=== PATIENT | female | born 1980 | race Caucasian/White ===

== ENCOUNTER 2019-08-08 14:31 | Outpatient (CLI) | payer BC, SELFPAY ==
--- NOTE | ~2019-08-08 | XR_ITS ---
EXAMINATION: XR scanogram DATE: 08/08/2019 15:12 INDICATION: Limb length discrepancy at the bilateral lower extremities TECHNIQUE: Standing AP view of the bilateral lower limbs were obtained on overlapping images with a bebeto mccormick. COMPARISON: None. FINDINGS: Leg length discrepancy with the apex of the right femoral head lying 11 mm cephalad to the apex of th e left femoral head. This is due primarily to a discrepancy in length of the bilateral tibiae with th e epicenter of the medial compartment of the right knee lying located 9 mm cephalad to the epicenter of the medial compartment of the left knee no fracture or suspicious lytic or blastic bone lesions. J oint spaces are normal. IMPRESSION: 1. 11 mm leg length discrepancy which appears to primarily to 9 mm increased length of the right tibi a relative to the left. Reviewed, dictated and finalized at location A. IMPRESSION: 1. 11 mm leg length discrepancy which appears to primarily to 9 mm increased le ngth of the right tibia relative to the left.
== END 2019-08-08 14:32 | disposition home or self-care (01) ==
LOC: ANHIMG 14:43
PROVIDERS: PCP Family Medicine; Visit Provider Podiatrist Foot & Ankle Surgery
DX: M21.762 Unequal limb length (acquired), left tibia (principal)
CPT/HCPCS: 77073

== ENCOUNTER 2019-08-18 22:44 | Emergency (ER) | payer BC, SELFPAY ==
--- NOTE | ~2019-08-18 | CT_ITS ---
EXAMINATION: CT abdomen pelvis w con DATE: 08/19/2019 01:01 INDICATION: Nausea and right lower quadrant tenderness. TECHNIQUE: Computed tomography (CT) of the abdomen and pelvis was performed with 100 mL Omnipaque-350 intravenous contrast. Automated exposure control and iterative reconstruction technique were employe d. The dose-length product was 613.37 mGy-cm. COMPARISON: 07/04/2018 FINDINGS: Lung bases are clear. Heart size is normal. No pericardial or pleural effusion. Focal hepatic steatos is at the ligamentum teres. Gallbladder, spleen, pancreas, bilateral adrenal glands and kidneys are n ormal. There is wall thickening of a few loops of small bowel in the central abdomen consistent with enteritis. The colon and appendix are normal. Bladder, anteverted uterus and right adnexa are normal. 2.2 cm peripherally enhancing likely corpus luteum cyst at the left ovary. Small amount of ascites i n the deep pelvis. No abscess or free intraperineal gas. Small fat-containing umbilical hernia. Schmo rl's node along the superior endplate of L2. IMPRESSION: 1. Wall thickening of a few loops of small bowel consistent with enteritis which could be either infe ctious or inflammatory in etiology. Dr. Oviedo discussed these findings with Dr. Wick at 10:35 AM. 2. 2.2 cm left ovarian corpus luteum cyst. 3. Small amount of free fluid in the pelvis which could be physiologic, reactive or related to ovaria n cyst rupture. Reviewed, dictated and finalized at location A. IMPRESSION: 1. Wall thickening of a few loops of small bowel consistent with enteritis whic h could be either infectious or inflammatory in etiology. Dr. Oviedo discusse d these findings with Dr. Wick at 10:35 AM. 2. 2.2 cm left ovarian corpus luteum cyst. 3. Small amount of free fluid in the pelvis which could be physiologic, reactiv e or related to ovarian cyst rupture.
[2019-08-18 22:46] VITALS: BP 131/92; PULSE 115; RESP 22; TEMP 37.3; O2SAT 100
[2019-08-18 23:15] LABS: Basophils Percent Auto 0.2 % (0.2-1.2); Eosinophils Percent Auto 0.2 % (0-4.4); Hematocrit 41.1 % (37.0-47.0); Hemoglobin 14.5 g/dL (12.0-15.0); Immature Granulocyte Absolute 0.04 K/mm3 (0.00-0.031); Immature Granulocyte Percent A 0.4 % (0-0.5); Lymphocytes Absolute Auto 1.18 K/mm3 (0.9-3.2); Lymphocytes Percent Auto 11.6 % (18.3-44.2); Mean Corpuscular HGB Conc 35.3 g/dl (32-36); Mean Corpuscular Hemoglobin 31.5 pg (26-34); Mean Corpuscular Volume 89.3 fl (80-100); Mean Platelet Volume 10.3 fl (7.4-10.4); Monocytes Absolute Auto 0.9 K/mm3 (0.1-0.6); Neutrophils Percent Auto 78.6 % (45.5-73.1); Platelet Count Result 309 k/mm3 (150-375); Red Cell Distribution Width 12.1 % (11.5-14.5); White Blood Count 10.2 K/mm3 (4.5-10.0)
[2019-08-18 23:30] LABS: Lactic Acid Reflex 0.7 mmol/L (0.7-2.1)
[2019-08-18 23:31] LABS: Alanine Aminotransferase 18 U/L (4-35); Albumin Level 4.7 g/dL (3.5-5.1); Alkaline Phosphatase 89 U/L (38-126); Aspartate Amino Transferase 31 U/L (14-36); Bilirubin,Total 0.9 mg/dL (0.2-1.3); Blood Urea Nitrogen 11 mg/dL (7-17); Carbon Dioxide 21 mmol/L (22-30); Chloride 101 mmol/L (98-107); Estimated CRCL calculation 112 ml/min; Estimated Glomerular Filt Rate > 60; Glucose 122 mg/dL (65-105); Lipase 90 U/L (23-300); Potassium 3.7 mmol/L (3.4-5.0); Sodium 131 mmol/L (137-145)
--- NOTE | 2019-08-18 23:49 | ED.ABDPAIN ---
HPI - Abdominal Pain General Chief Complaint: Abdominal Pain Stated Complaint: abd pain, possible uti, Time Seen by Provider: 08/18/19 23:24 Source: patient Mode of arrival: ambulatory Limitations: no limitations History of Present Illness HPI narrative: This patient is a 39 year old female who presents for evaluation of nausea and diarrhea. She states all day she has had multiple episodes of diarrhea and nausea. She took an old prescribed zofran today but she states she still feels like ball of nausea in epigastric. She has chills but no fever or cough. She spoke with MD on teleconference and she was referred to ER for possible gallbladder issue. She also thinks she has UTI due to increased urinary frequency for 2 days. Onset (ago): day(s) Pain Consistency: constant Location: epigastric Exacerbating factors: eating Related Data Home Medications Medication Instructions Recorded Confirmed thyroid (pork) 120 mg tablet 120 mg PO DAILY 12/16/18 12/16/18 Allergies Allergy/AdvReac Type Severity Reaction Status Date / Time No Known Allergies Allergy Unverified 05/30/13 16:12 Review of Systems Review of Systems: All systems reviewed & are unremarkable except as noted in HPI and below Constitutional: Constitutional: Reports chills and Denies fever(s) Respiratory: Respiratory: Denies cough, Denies dyspnea and Denies wheezing Gastrointestinal: Gastrointestinal: Reports abdominal pain, Reports diarrhea, Reports nausea and Denies vomiting Genitourinary: Genitourinary: Reports nocturia [facility] Past Medical History Medical History (Updated 08/19/19 @ 02:35 by Randa Nunez MD) Hypothyroid Nasal septum perforation Surgical History Surgical History (Updated 08/18/19 @ 23:50 by Randa Nunez MD) H/O section H/O nasal septoplasty History of mandibular surgery Family History Family History (Updated 09/13/15 @ 23:21 by DOCTOR UNKNOWN) Mother Patient's mother is in good health Father Patient's father is in good health Family history of diabetes mellitus in first degree relative Sibling Patient's brother is in good health Social History Social History (Updated 03/17/19 @ 11:10 by Harper Ramesh) Social History: Smoking status: Never smoker Second hand tobacco smoke exposure: No Alcohol intake: current Substance use: never Substance use type: does not use Additional occupation/education comments: homemaker Gender identity (if verbalized by the patient): Female Exam Narrative: Exam Narrative: GENERAL: Well-appearing, well-nourished, and in no acute distress. HEAD: Normocephalic, atraumatic EYES: PERRLA and EOMI, conjunctiva clear without discharge THROAT:Mucous membranes moist, Oropharynx normal without erythema, exudate, peritonsillar swelling or fluctuance NECK: Supple, without lymphadenopathy or mass RESPIRATORY: No respiratory distress, Airway patent, Respirations non-labored, Clear to auscultation without rales, rhonchi or wheeze HEART: Regular rate and rhythm. No murmur heard. Normal peripheral pulses. ABDOMEN: Soft, LLQ , epigastric, nondistended, normal active bowel sounds. No masses. No rebound or guarding, No organomegaly. EXTREMITIES: No edema, normal strength with full range of motion. SKIN: Warm, dry, normal color without rash NEURO: Alert and oriented x3. CN 2-12 grossly intact. No focal deficits. PSYCH: Normal mood and affect. Course Reevaluation(s) Reevaluation #1: PAtient states she feels better. I discussed CT with left ovarian cyst and she has UTI. She will be given antibiotics in ER and she will be discharged to follow up with washer blanket Date: 08/19/19 Time: 02:31 Vital Signs Vital signs: Vital Signs Temperature 99.1 F 08/18/19 22:46 Pulse Rate 115 H 08/18/19 22:46 Respiratory Rate 22 H 08/18/19 22:46 Blood Pressure 131/92 H 08/18/19 22:46 Pulse Oximetry 100 08/18/19 22:46 Temperatur
[2019-08-19 00:04] LABS: Add Urine Microscopic? YES; Appearance Urine Clear (Clear); Bacteria Urine Trace /hpf; Bilirubin Urine Negative (Negative); Blood Urine 1+ (Negative); Color Urine Amber (Yellow); Glucose Urine UA Negative (Negative); Ketones Urine Negative (Negative); Leukocyte Esterase Ur 1+ LEU/UL (Negative); Nitrate Urine Positive (Negative); Protein Urine Negative (Negative); Specific Grav Ur 1.012 (1.001-1.035); Squamous Epithelial Cell Urine Many /hpf (Few); WBC Urine 31-50 /hpf
[2019-08-19] MEDS: PANTOPRAZOLE SODIUM IV 40 MG VIAL IV PUSH (00:19)
[2019-08-19] MEDS: ONDANSETRON INJ 4 MG/2 ML VIAL IV PUSH (00:19)
[2019-08-19] MEDS: LACTATED RINGERS 1,000 ML 999 ML IV CONT (00:23)
[2019-08-19 00:40] VITALS: BP 112/72; PULSE 94; RESP 18; O2SAT 98
--- NOTE | 2019-08-19 00:40 | ECG_ITS ---
Measurements Intervals [place] Rate: 86 P: 44 CA: 124 QRS: 39 QRSD: 84 T: 10 QT: 367 QTc: 440 Interpretive Statements SINUS RHYTHM BORDERLINE ST-T WAVE ABNORMALITY- ANT/INF LEADS BASELINE ARTIFACT- I, II, III, AVR, AVL,A VF BORDERLINE ECG Electronically Signed On 08-19-2019 8:11:04 CDT by Pool Agudelo D.O.
[2019-08-19 01:31] VITALS: BP 109/74; PULSE 91; RESP 18; O2SAT 99
[2019-08-19 03:08] VITALS: BP 128/70; PULSE 70; RESP 18; O2SAT 98
== END 2019-08-19 03:09 | disposition home or self-care (01) ==
PROVIDERS: Emergency Provider General Practice; PCP Family Medicine
DX: N39.0 Urinary tract infection, site not specified (principal); N83.202 Unspecified ovarian cyst, left side; R11.2 Nausea with vomiting, unspecified; E03.9 Hypothyroidism, unspecified; R94.31 Abnormal electrocardiogram [ECG] [EKG]
CPT/HCPCS: 36415; 74177; 80053; 81001; 81025; 83605; 83690; 85025; 87086; 87088; 93005; 96361; 96374; 96375; 99284; C9113; J0696; J2405; J7120; Q9967

== ENCOUNTER 2020-09-27 16:24 | Outpatient (CLI) | payer BC, SELFPAY ==
--- NOTE | ~2020-09-27 | CT_ITS ---
EXAMINATION: CT sinus wo con DATE: 09/27/2020 16:38 INDICATION: Chronic sinusitis, unspecified. TECHNIQUE: Computed tomography (CT) of the paranasal sinuses was performed without intravenous contra st. Iterative reconstruction technique was employed. The dose-length product was 300.40 mGy-cm. COMPARISON: Brain MRI 01/24/2019 FINDINGS: The frontal sinuses are hypoplastic. There is mild mucosal thickening in the frontal recess es. The sphenoid sinuses are clear. There are reconstruction plates with screws at the maxilla and ma xillary sinuses. There is chronic dehiscence of the posterior and inferior olivas of the maxillary sin uses. There is leftward deviation of the nasal septum. There are bilateral Erick cells. The ostiomea yuli units are patent. There is mild mucosal thickening in the right infundibulum at the left hiatus s emilunaris. IMPRESSION: 1. Mild mucosal thickening in the paranasal sinuses. 2. Leftward deviation of the nasal septum. Reviewed, dictated and finalized at location A.
== END 2020-09-27 16:25 | disposition home or self-care (01) ==
PROVIDERS: PCP Family Medicine; Visit Provider Family Medicine
DX: J32.9 Chronic sinusitis, unspecified (principal); J34.89 Other specified disorders of nose and nasal sinuses; J34.2 Deviated nasal septum
CPT/HCPCS: 70486

== ENCOUNTER → 2020-10-17 10:00 | Outpatient (CLI) | payer BC, SELFPAY ==
--- NOTE | ~2020-10-17 | XR_ITS ---
EXAMINATION: XR lumbar spine 2-3V DATE: 10/17/2020 11:16 INDICATION: Low back pain TECHNIQUE: Anteroposterior and lateral views of the lumbar spine, and cone-down lateral view of the l umbosacral junction were obtained. COMPARISON: None. FINDINGS: The vertebral body heights and alignment are normal. There is mild loss of intervertebral d isc space height at L4-5. Small degenerative osteophytes project from the anterior endplates of multi ple vertebral bodies. A moderate volume of colonic stool is present. IMPRESSION: 1. Mild lumbar spondylosis without acute findings. Reviewed, dictated and finalized at location A.
--- NOTE | ~2020-10-17 | MR_ITS ---
EXAMINATION: MR brain/brain stem wo/w con EXAM DATE: 10/17/2020 10:49 INDICATION: Impairment of balance impairment of balance . TECHNIQUE: Magnetic resonance imaging (MRI) of the brain/brain stem obtained without contrast. Sagit yuli T1, axial diffusion, gradient echo (T2*), T1, T2, FLAIR sequences obtained. Patient was then inj ected with 15 cc intravenous Multihance contrast. Axial and coronal postcontrast T1 weighted sequence s obtained. Comparison is made to prior examination from 01/24/2019. FINDINGS: There are no areas of restricted diffusion to suggest acute infarction. There is no acute hemorrhage seen on the T2*, a hemosiderin sensitive sequence. No intraparenchymal brain mass. The ve ntricles are normal in size. There are no extra-axial collections. Flow voids are seen in the cereb ral arteries on the T2-weighted sequences consistent with their expected patency. The orbits are unr emarkable. Soft tissue is unremarkable. There are no areas of abnormal enhancement on the postcont rast images. IMPRESSION: 1. Normal brain MRI examination. Reviewed, dictated and finalized at location B.
[2020-10-17 10:25] LABS: Estimated Glomerular Filt Rate > 60
== END ==
PROVIDERS: PCP Physician Assistant; Visit Provider Physician Assistant
DX: M54.5 Low back pain (principal); R26.89 Other abnormalities of gait and mobility; M47.816 Spondylosis without myelopathy or radiculopathy, lumbar region
CPT/HCPCS: 70553; 72100; A9577

== ENCOUNTER → 2021-03-31 13:53 | Outpatient (CLI) | payer BC, SELFPAY ==
--- NOTE | ~2021-03-31 | US_ITS ---
EXAMINATION: US pelvic complete w TV DATE: 03/31/2021 14:17 INDICATION: Right lower quadrant pain and bloating TECHNIQUE: Multiple transabdominal and endovaginal sonographic images of the pelvis were obtained. COMPARISON: None. FINDINGS: The uterus measures 10.2 x 4 x 5.1 cm. The endometrial complex measures 9 mm. The right ova ry measures 2.2 x 1.9 x 2.2 cm. The left ovary measures 2.7 x 1.9 x 3.5 cm. There is normal vascular flow in the ovaries. There is no free fluid in the pelvis. IMPRESSION: 1. No sonographic correlate for the patient's symptoms. Reviewed, dictated and finalized at location A. TRICAL MAINTENANCE TECHNICIAN
== END ==
PROVIDERS: PCP Physician Assistant; Visit Provider Physician Assistant
DX: R14.0 Abdominal distension (gaseous) (principal)
CPT/HCPCS: 76830; 76856

== ENCOUNTER → 2021-04-08 08:29 | Outpatient (CLI) | payer BC, SELFPAY ==
--- NOTE | ~2021-04-08 | US_ITS ---
US abdomen complete EXAMINATION: US Abdomen Complete INDICATION: Bloating and fullness. Nausea after eating. PROCEDURE: Realtime High Resolution abdomen ultrasound. COMPARISON: No prior studies for comparison FINDINGS: Gallbladder within normal limits. No gallstones, pericholecystic fluid, gallbladder wall t hickening or biliary dilatation. Common bile duct measures 4 mm. Liver echotexture within normal limits without focal mass. Pancreas within normal limits. Pancreati c tail is obscured by bowel gas. Spleen is unremarkeable. Renal echotexture is within normal limits bilaterally without hydronephrosis, contour deforming mass or renal stone. Right kidney measures 10.3 cm. Left kidney measures 10.7 cm. Visualized aspects of the aorta and IVC are within normal limits. Portal vein is patent. No sonograph ic Amador's sign indicated by the technologist. IMPRESSION: 1: Normal abdominal ultrasound. Reviewed, dictated and finalized at location B. VISION PRODUCTION CLERK
== END ==
PROVIDERS: PCP Physician Assistant; Visit Provider Physician Assistant
DX: R14.0 Abdominal distension (gaseous) (principal)
CPT/HCPCS: 76700

== ENCOUNTER → 2021-11-20 10:12 | Outpatient (CLI) | payer BC, SELFPAY ==
--- NOTE | ~2021-11-20 | MM_ITS ---
EXAMINATION: MM screening maryam BI w dilcia HISTORY: Screening mammogram TECHNIQUE: Craniocaudal and mediolateral oblique 3-D tomosynthesis images were obtained and synthetic 2-D images were generated. CAD analysis was submitted and interpreted. COMPARISON: No prior mammogram is available for comparison at this institution. BREAST PARENCHYMAL COMPOSITION: The breasts are heterogeneously dense, which may obscure small masses . FINDINGS: RIGHT BREAST: There are possible masses in the subareolar aspect of the slightly outer breast. There is also an asymmetry in the middle third of the breast in line with the nipple axis on the mediolater al oblique view. LEFT BREAST: No suspicious mass, calcification, or architectural distortion are identified to suggest malignancy. IMPRESSION: 1. Right breast findings as described above which may represent the patient's baseline however no com parison is currently available. 2. Comparison with prior mammograms is necessary. BI-RADS Category 0: Incomplete: Needs comparison with prior mammograms. Reviewed, dictated and finalized at location B. IMPRESSION: 1. Right breast findings as described above which may represent the patient's b aseline however no comparison is currently available. 2. Comparison with prior mammograms is necessary. BI-RADS Category 0: Incomplete: Needs comparison with prior mammograms.
== END ==
PROVIDERS: PCP Physician Assistant
DX: Z12.31 Encounter for screening mammogram for malignant neoplasm of breast (principal); R92.8 Other abnormal and inconclusive findings on diagnostic imaging of breast
CPT/HCPCS: 77063; 77067

== ENCOUNTER → 2021-12-16 13:15 | Outpatient (CLI) | payer BC, SELFPAY ==
--- NOTE | ~2021-12-16 | MR_ITS ---
EXAMINATION: MR brain/brain stem wo/w con DATE: 12/16/2021 14:20 INDICATION: Loss of balance. Other abnormalities of gait and mobility. TECHNIQUE: Magnetic resonance imaging (MRI) of the brain and brainstem was performed without and with 15 mL MultiHance intravenous contrast. COMPARISON: Brain MRI 10/17/2020 FINDINGS: There is no intracranial hemorrhage, acute infarction, or abnormal intracranial mass lesion . The ventricles are normal in size. The paranasal sinuses are clear. The orbits are normal. The mast oid air cells are normal. IMPRESSION: 1. Normal brain. Reviewed, dictated and finalized at location A. IMPRESSION: 1. Normal brain.
== END ==
PROVIDERS: PCP Physician Assistant; Visit Provider Physician Assistant
DX: R26.89 Other abnormalities of gait and mobility (principal)
CPT/HCPCS: 70553; A9577

== ENCOUNTER → 2021-12-19 08:47 | Outpatient (CLI) | payer BC, SELFPAY ==
--- NOTE | ~2021-12-19 | MMUS_ITS ---
EXAMINATION: MM diagnostic maryam RT w dilcia, US breast RT complete HISTORY: Follow-up possible subareolar mass of the right breast TECHNIQUE: Additional 3-D tomosynthesis images of the right breast were performed and synthetic 2-D i mages were generated. CAD analysis was submitted and interpreted. High resolution complete right antwan st ultrasound was performed. COMPARISON: Comparison to multiple prior studies sequentially, with oldest reviewed study dated 03/29. BREAST PARENCHYMAL COMPOSITION: The breasts are heterogeneously dense, which may obscure small masses FINDINGS: MAMMOGRAPHIC FINDINGS: There is a persistent focal asymmetry anteriorly and laterally on the spot CC view near the nipple. N o discrete mass identified. ULTRASOUND: Complete right breast US of all 4 quadrants of the breasts and retroareolar region was reviewed. Ther e are multiple simple cysts of the right breast. At 8:00, 7 cm from the nipple there is an oval hypoe choic mass with parallel orientation, circumscribed margins, no significant posterior features or int ernal vascularity. This mass measures 8 x 7 x 4 mm with heterogeneous internal echotexture. At 11:00, 4 cm from the nipple, there is an oval circumscribed hypoechoic mass with parallel orientation, no s ignificant posterior features measuring 1.1 x 1 x 0.8 cm. There are the areola there is an 8 mm cyst likely corresponding to the mammographic finding. IMPRESSION: 1. Indeterminate masses of the right breast at 8:00, 7 cm from the nipple and 11:00, 4 cm from the ni pple. 2. Ultrasound-guided right breast biopsy recommended. BI-RADS category 4, suspicious findings. Reviewed, dictated and finalized at location A. IMPRESSION: 1. Indeterminate masses of the right breast at 8:00, 7 cm from the nipple and 1 1:00, 4 cm from the nipple. 2. Ultrasound-guided right breast biopsy recommended. BI-RADS category 4, suspicious findings.
== END ==
PROVIDERS: PCP Physician Assistant
DX: R92.8 Other abnormal and inconclusive findings on diagnostic imaging of breast (principal)
CPT/HCPCS: 76641; 77061; 77065; G0279

== ENCOUNTER → 2022-02-24 12:29 | Outpatient (CLI) | payer BC, SELFPAY ==
--- NOTE | ~2022-02-24 | MR_ITS ---
EXAMINATION: MR lumbar spine wo con DATE: 02/24/2022 13:00 INDICATION: Right-sided low back pain. Lumbar radiculopathy. TECHNIQUE: Magnetic resonance imaging (MRI) of the lumbar spine was performed without intravenous con trast. Sequences included sagittal T2-weighted FSE, sagittal T2-weighted FS FSE, sagittal T1-weighted FSE, and axial T2-weighted FSE. COMPARISON: Lumbar spine radiographs 10/17/2020 FINDINGS: There is 5 degrees dextrocurvature of the lumbar spine. There is a Schmorl's node of superi or endplate of L2. There is mildly decreased disc height at L4-L5. The distal spinal cord signal inte nsity is normal. The conus medullaris is at L1. The following disc levels are specifically discussed: L1-L2: There is a left central protrusion. There is mild bilateral facet joint osteoarthritis. There is no neural foraminal stenosis. There is mild central canal stenosis. L2-L3: The disc does not extend beyond the endplate margin. There is mild bilateral facet joint osteo arthritis. There is no neural foraminal stenosis. There is no central canal stenosis. L3-L4: The disc is bulging and has an annular fissure. There is mild bilateral facet joint osteoarthr itis. There is mild bilateral neural foraminal stenosis. There is mild central canal stenosis. L4-L5: The disc is bulging and has an annular fissure. There is severe right and moderate left facet joint osteoarthritis. There is mild bilateral neural foraminal stenosis. There is mild central canal stenosis. L5-S1: The disc is mildly bulging and has an annular fissure. There is moderate bilateral facet joint osteoarthritis. There is mild bilateral neural foraminal stenosis. There is mild central canal steno sis. IMPRESSION: 1. Mild lumbar spondylosis. Reviewed, dictated and finalized at location A. MANAGER IMPRESSION: 1. Mild lumbar spondylosis.
== END ==
PROVIDERS: PCP Physician Assistant; Visit Provider Physician Assistant
DX: M47.26 Other spondylosis with radiculopathy, lumbar region (principal)
CPT/HCPCS: 72148

== ENCOUNTER 2022-10-06 03:29 | Day surgery (SDC) | payer BC, SELFPAY ==
[2022-09-23 12:32] VITALS: BMI 34.6
--- NOTE | 2022-10-05 14:35 | P.PNAN_ITS ---
Anes - Initial Pre Proc Eval Procedure: Operation Date: 10/06/22 10:30 Proposed Procedures p Colonoscopy - Jus Chowdhury MD Date/Time: 10/05/22 14:35 Surgeon: Jus Chowdhury MD Pre Op Diagnosis: other fecal abnormalities, Patient Data Age: 42 Gender: F Height: 1.57 m Weight: 85.9 kg Allergies Allergy/AdvReac Type Severity Reaction Status Date / Time No Known Allergies Allergy Verified 10/06/22 09:19 Home Medications Medication Instructions Recorded Confirmed Type liothyronine 5 mcg tablet (Cytomel) 5 mcg PO DAILY 10/03/20 09/23/22 History bupropion HCl 150 mg 24 hr tablet, 150 mg PO DAILY 09/23/22 09/23/22 History extended release levothyroxine 75 mcg capsule 75 mcg PO DAILY 09/23/22 09/23/22 History (Tirosint) Patient hx anesthesia problems: none Family hx anesthesia problems: none Results Review: All pre-operative results and documents have been reviewed as part of the pre- operative evaluation. [facility] Past Medical History Medical History (Updated 09/17/22 @ 11:55 by JIGNESH Zhu) Anal itching Hypothyroid Nasal septum perforation Rectal bleeding Surgical History Surgical History H/O section H/O nasal septoplasty History of mandibular surgery Family History Family History Mother Patient's mother is in good health Depression Thyroid disorder Father Patient's father is in good health Family history of diabetes mellitus in first degree relative Alcoholism Sibling Patient's brother is in good health Social History Social History Social History: Smoking status: Never smoker Second hand tobacco smoke exposure: No Alcohol intake: current Alcohol use details: occasional use Substance use: never Substance use type: does not use Living arrangements: with family Occupation/Education: unemployed Additional occupation/education comments: homemaker Gender identity (if verbalized by the patient): Female Sexual Orientation (if Verbalized by the Patient): Straight or Heterosexual Spiritual care concerns: No Anes - Eval Final PreProcedure Day of Procedure 10/05/22 14:35 Patient weight: obese Heart: regular rate and rhythm Lungs: clear to auscultation Airway: Mallampati scale class II Neurological: alert and oriented Last oral intake: >/= 8 hours ASA classification: III Emergent: no Anesthetic plan: proceed Anesthesia type and monitoring: general GIVS and standard monitoring Results Review: All pre-operative results and documents have been reviewed as part of the pre- operative evaluation. Informed Consent: The patient's anesthetic plan and its attendant risks and benefits were discussed with the patient/family/POA. Questions were solicited and answers provided to the satisfaction of the patient/family/POA.
[2022-10-06 09:21] VITALS: BP 118/82; PULSE 90; RESP 18; TEMP 36.4; O2SAT 100
[2022-10-06] MEDS: LACTATED RINGERS 1,000 ML 150 ML IV CONT (09:31)
--- NOTE | 2022-10-06 09:34 | SUR.PREOP ---
PT UNABLE TO VOID, PT CURRENTLY ON PERIOD, PT STATES SHE TOOK TEST AT HOME YESTERDAY WHICH WAS NEGATIVE, DR MCCORMACK NOTIFIED AND ORDERED RECEIVED TO CANCEL BEDSIDE TEST
--- NOTE | 2022-10-06 09:45 | WPDHPUPDATE1 ---
History and Physical Update Update Date/Time: 10/06/22 09:45 History and Physical has been reviewed, including an updated exam of the patient. There are NO changes in the patient's condition. Risks, benefits, and alternatives have been discussed and questions answered. Patient agrees to proceed with procedure.
[2022-10-06 10:05] VITALS: BP 106/74; PULSE 100; RESP 21; O2SAT 100
[2022-10-06 10:15] VITALS: BP 129/89; PULSE 81; RESP 17; O2SAT 100
[2022-10-06 10:25] VITALS: BP 114/84; PULSE 76; RESP 21; O2SAT 100
== END 2022-10-06 10:38 | disposition home or self-care (01) ==
PROVIDERS: PCP Physician Assistant; Visit Provider Internal Medicine Gastroenterology
PROC: 0DJD8ZZ Inspection of Lower Intestinal Tract, Via Natural or Artificial Opening Endoscopic (ICD-10-PCS; CPT 45378; principal; 2022-10-06 10:30)
DX: K64.8 Other hemorrhoids (principal); K64.4 Residual hemorrhoidal skin tags; E03.9 Hypothyroidism, unspecified; E66.9 Obesity, unspecified; Z68.34 Body mass index [BMI] 34.0-34.9, adult
CPT/HCPCS: 45378; J2704; J7120